=== PATIENT | female | born 1960 | race Caucasian/White ===

== ENCOUNTER 2020-03-11 17:53 | Emergency (ER) | payer BC ==
[~2020-03-11] VITALS: Ht 170.2 cm; Wt 90.9 kg
[2020-03-11 17:59] VITALS: BP 136/67; PULSE 79; TEMP 97.7
[2020-03-11] MEDS ORDERED: SYNTHROID0.075 MG/T (18:31)
== END 2020-03-11 19:37 | disposition home or self-care (01) ==
LOC: COL.ER 17:53
DX: S63.502A Unspecified sprain of left wrist, initial encounter (principal); S53.402A Unspecified sprain of left elbow, initial encounter; E03.9 Hypothyroidism, unspecified; Z88.1 Allergy status to other antibiotic agents; W19.XXXA Unspecified fall, initial encounter